=== PATIENT | female | born 1970 | race Caucasian/White ===

== ENCOUNTER → 2016-05-04 | Outpatient (CLI) | payer BC | LOC: BHSO 10:40 | DX: F31.81 Bipolar II disorder (principal) | CPT/HCPCS: 90791-AI ==

== ENCOUNTER → 2016-05-29 | Outpatient (CLI) | payer BC | LOC: BHSO 11:07 | DX: F31.81 Bipolar II disorder (principal) ==

== ENCOUNTER → 2016-10-13 | Outpatient (CLI) | payer BC | LOC: BHSO 11:12 | DX: F31.81 Bipolar II disorder (principal) ==

== ENCOUNTER → 2017-04-27 | Outpatient (CLI) | payer BC | LOC: BHSO 08:36 | DX: F31.81 Bipolar II disorder (principal) | CPT/HCPCS: G0463 ==

== ENCOUNTER → 2017-06-18 | Outpatient (CLI) | payer BC | LOC: BHSO 11:22 | DX: F31.81 Bipolar II disorder (principal) | CPT/HCPCS: G0463 ==

== ENCOUNTER → 2017-10-02 | Outpatient (CLI) | payer BC | LOC: BHSO 08:33 | DX: F31.81 Bipolar II disorder (principal) | CPT/HCPCS: G0463 ==

== ENCOUNTER → 2017-10-30 | Outpatient (CLI) | payer BC | LOC: BHSO 08:41 | DX: F31.81 Bipolar II disorder (principal) | CPT/HCPCS: G0463 ==

== ENCOUNTER → 2019-11-05 | Outpatient (CLI) | payer BC ==
[~2019-11-05] VITALS: Ht 163.8 cm; Wt 105.9 kg
[~2019-11-05] MED LIST: AMLODIPINE BESYLATE PO; COLESTID 1GM1 G PO; KLONOPIN 1MG1 MG PO; LAMICTAL XR25 MG PO
[2019-11-05 10:36] VITALS: BP 146/84; PULSE 88
--- NOTE | 2019-11-05 12:53 | NUR ---
PT ANSWERED YES TO SUICIDE RISK QUESTION #1 (iN THE PAST MONTH, HAVE YOU WISHED YOU WERE OR WISHED YOU COULD GO TO SLEEP AND NOT WAKE UP?) DENIED THOUGHTS OF KILLING HERSELF IN THE PAST MONTH. OVER THE PAST 3 MONTHS SHE STATED THAT SHE HAD PLANNED TO EAT HERSELF TO AND NOT PAY ATTENTION TO HER DIET. NO IMMEDIATE SUICIDAL THOUGHTS OR PLANS. RELATES THAT STARTING OUR PROGRAM HAS GIVEN HER HOPE. PLANS TO HAVE BARIATRIC SURGERY FOR HEALTH ISSUES. WAS SEEN BY DR. MOSES AT [place], [place] ON 10/22/2019 AND WAS STARTED ON NEW MEDS. HAS A FU APPT SCHEDULED FOR 11/19/2019, 2:30pm WITH DR MOSES. [facility] NOTIFIED AND THEY WILL CALL THE PATIENT IF ANY CANCELLATIONS FOR DR MOSES OCCUR PRIOR TO HER 11/19/2019 APPT. PT HAS SEEN DR. STEEN IN THE PAST. RELATES THAT HER SON HAS BEEN IN [facility] FOR A YEAR AND THAT HER CURRENT HEALTH ISSUES INCLUDE: LIVER ISSUES/HERRMANN, SOME PAIN, CHRONIC LOOSE STOOLS, NEWLY DX DIABETES TYPE 2, HYPERTENSION AND HIGH CHOLESTEROL/TRIGLYCERIDEMIA. HAS BEEN STRUGGLING TO COPE WITH THESE ISSUES. IS NOT CURRENTLY SEEING A COUNSELOR, BUT WILL BE SEEN BY [facility] FOR [facility]. ENCOURAGED HER TO SEE A COUNSELOR AND DECIDE IF SHE WOULD LIKE TO SEE [facility] ON AN ONGOING BASIS FOR DEPRESSED MOOD AND ANXIETY. SEEN BY [facility] AND PLAN IS TO FU WITH DR MOSES OR SOONER. ALSO TO SEE [facility]. PT CONT. TO DENY SUICIDAL THOUGHTS OR PLANS. STATES THAT SHE WOULD BE SAFE.
== END ==
LOC: LIGHT 07:51
DX: E66.01 Morbid (severe) obesity due to excess calories (principal); Z68.39 Body mass index [BMI] 39.0-39.9, adult; E11.9 Type 2 diabetes mellitus without complications; I10 Essential (primary) hypertension
CPT/HCPCS: G0463

== ENCOUNTER → 2019-11-07 | Outpatient (CLI) | payer BC | LOC: COL.RAD | DX: K76.0 Fatty (change of) liver, not elsewhere classified (principal); R16.0 Hepatomegaly, not elsewhere classified ==

== ENCOUNTER → 2019-11-18 | Outpatient (CLI) | payer BC | LOC: LIGHT ==

== ENCOUNTER → 2019-12-02 | Outpatient (CLI) | payer BC ==
[~2019-12-02] VITALS: Ht 163.8 cm; Wt 104.8 kg
[~2019-12-02] MED LIST changes: +GLUCOPHAGE500 MG/TAB PO; +LAMICTAL XR100 MG PO; -LAMICTAL XR25 MG PO; +LIPITOR20 MG PO
[2019-12-02 14:41] VITALS: BP 134/60; PULSE 76
== END ==
LOC: LIGHT 14:30
DX: E66.8 Other obesity (principal); Z68.39 Body mass index [BMI] 39.0-39.9, adult; E11.9 Type 2 diabetes mellitus without complications; I10 Essential (primary) hypertension
CPT/HCPCS: G0463

== ENCOUNTER → 2020-01-05 | Outpatient (CLI) | payer BC ==
[~2020-01-05] VITALS: Ht 163.8 cm; Wt 102.3 kg
[2020-01-05 15:06] VITALS: BP 130/76; PULSE 80
== END ==
LOC: LIGHT 14:57
DX: E66.01 Morbid (severe) obesity due to excess calories (principal); Z68.38 Body mass index [BMI] 38.0-38.9, adult; E11.9 Type 2 diabetes mellitus without complications; Z79.84 Long term (current) use of oral hypoglycemic drugs; I10 Essential (primary) hypertension
CPT/HCPCS: G0463

== ENCOUNTER → 2020-02-25 | Day surgery (SDC) | payer BC ==
[~2020-02-25] VITALS: Ht 162.6 cm; Wt 101.2 kg
[~2020-02-25] MED LIST changes: -AMLODIPINE BESYLATE PO; +NORVASC 5MG5 MG/TAB PO
[2020-02-25 06:38] VITALS: BP 136/90; PULSE 84; TEMP 99
[2020-02-25 07:55] VITALS: BP 128/88; PULSE 88
--- NOTE | 2020-02-25 07:55 | NUR ---
Patient returns to bay [address] per cart after having EGD and transfers from cart to recliner. Alert and oriented. IV fluids infusing and denies nausea or difficulty swallowing. Given Sprite to drink. Call light in reach.
--- NOTE | 2020-02-25 08:05 | NUR ---
Dr. Pierre here and talks with the patient. All questions answered.
[2020-02-25 08:10] VITALS: BP 129/89; PULSE 83
--- NOTE | 2020-02-25 08:10 | NUR ---
Eating applesauce and drinking water. States she is ready to go home.
--- NOTE | 2020-02-25 08:24 | NUR ---
IV fluids discontinued and site is free of redness. Dismissal instructions given and voices understanding of these. Dressed and dismissed to home driven by spouse and taken to the front door per wheelchair by this RN and assisted into vehicle by this RN.
[2020-02-25 08:42] VITALS: BP 136/90; PULSE 84; TEMP 99.2
== END ==
LOC: SDCO 06:29
DX: K29.30 Chronic superficial gastritis without bleeding (principal); K44.9 Diaphragmatic hernia without obstruction or gangrene; K21.9 Gastro-esophageal reflux disease without esophagitis; K76.0 Fatty (change of) liver, not elsewhere classified; K52.9 Noninfective gastroenteritis and colitis, unspecified; G89.29 Other chronic pain; M54.5 Low back pain; E66.01 Morbid (severe) obesity due to excess calories; Z68.38 Body mass index [BMI] 38.0-38.9, adult; E78.5 Hyperlipidemia, unspecified; E88.81 Metabolic syndrome and other insulin resistance; Z90.710 Acquired absence of both cervix and uterus; Z79.84 Long term (current) use of oral hypoglycemic drugs; Z86.718 Personal history of other venous thrombosis and embolism; I10 Essential (primary) hypertension; G43.909 Migraine, unspecified, not intractable, without status migrainosus; F32.9 Major depressive disorder, single episode, unspecified; F41.9 Anxiety disorder, unspecified; Z20.828 Contact with and (suspected) exposure to other viral communicable diseases
CPT/HCPCS: J2704; J7030

== ENCOUNTER 2020-03-22 11:44 | Inpatient (IN) | payer BC ==
[~2020-03-22] VITALS: Ht 166.4 cm; Wt 97.7 kg
[2020-04-07] VITALS (638 sets, daily range): BP systolic 126–139; BP diastolic 79–103; PULSE 79–93; TEMP 98–99.5; O2SAT 78–100
[2020-04-08] VITALS (615 sets, daily range): BP systolic 135–157; BP diastolic 75–92; PULSE 69–86; TEMP 98.2–98.8; O2SAT 89–100
[2020-04-08 09:00] LABS: BASO % 0.2 % (0.0-2.0); EOS % 0.1 % (0-4.0); GRAN # 10.3 (1.4-6.5); HEMATOCRIT 45.5 % (37.0-47.0); HEMOGLOBIN 14.9 g/dl (12.5-16.0); LYMPH # 2.9 (1.2-3.4); MEAN CELL VOLUME 88 fl (80.0-100.0); MEAN CORPUSCULAR HEMOGLOBIN 29 pg (27.0-31.0); MEAN CORPUSCULAR HGB CONC 33 g/dl (33.0-37.0); MEAN PLATELET VOLUME 8.9 fl (7.4-10.4); MONO # 1.1 (0.1-0.6); MONO % 7.4 % (1.7-9.3); PLATELET COUNT 331 K/mm3 (130-400); RED BLOOD COUNT 5.16 M/mm3 (4.10-5.30); REDCELL DISTRIBUTION WIDTH-CV 13.4 % (11.5-14.5)
[2020-04-08 09:10] LABS: ALBUMIN 4.9 gm/dL (3.5-5.0); BILIRUBIN,TOTAL 0.6 mg/dL (0.0-1.0); CALCIUM 9.4 mg/dL (8.4-10.2); CREATININE, serum 0.6 (0.52-1.25); POTASSIUM 4.2 mmol/L (3.4-5.0); TOTAL PROTEIN 8.1 gm/dL (6.4-8.2)
[2020-04-09] VITALS (7 sets, daily range): BP systolic 118–143; BP diastolic 71–97; PULSE 66–82; TEMP 97.8–98.8
[2020-04-09 08:44] LABS: BASO # 0.1 (0.0-0.2); BASO % 0.6 % (0.0-2.0); EOS # 0.2 (0.0-0.7); EOS % 1.8 % (0-4.0); GRAN % 62.5 % (42.2-75.2); HEMATOCRIT 43.2 % (37.0-47.0); HEMOGLOBIN 13.9 g/dl (12.5-16.0); LYMPH # 2.7 (1.2-3.4); LYMPH % 28.5 % (20.0-51.0); MEAN CELL VOLUME 90 fl (80.0-100.0); MEAN CORPUSCULAR HEMOGLOBIN 29 pg (27.0-31.0); MEAN CORPUSCULAR HGB CONC 32 g/dl (33.0-37.0); MONO # 0.6 (0.1-0.6); MONO % 6.4 % (1.7-9.3); PLATELET COUNT 283 K/mm3 (130-400); RED BLOOD COUNT 4.79 M/mm3 (4.10-5.30); REDCELL DISTRIBUTION WIDTH-CV 13.9 % (11.5-14.5)
[2020-04-09 08:54] LABS: ALBUMIN 4.3 gm/dL (3.5-5.0); BILIRUBIN,TOTAL 0.7 mg/dL (0.0-1.0); CALCIUM 8.9 mg/dL (8.4-10.2); CREATININE, serum 0.63 (0.52-1.25); TOTAL PROTEIN 7.3 gm/dL (6.4-8.2)
[2020-04-10 03:39] VITALS: BP 121/75; PULSE 78; TEMP 98
[2020-04-10 07:51] LABS: BASO # 0.1 (0.0-0.2); BASO % 0.5 % (0.0-2.0); EOS # 0.2 (0.0-0.7); EOS % 2.5 % (0-4.0); GRAN # 5.6 (1.4-6.5); GRAN % 59.4 % (42.2-75.2); HEMATOCRIT 41.2 % (37.0-47.0); HEMOGLOBIN 13.5 g/dl (12.5-16.0); LYMPH # 2.9 (1.2-3.4); LYMPH % 30.9 % (20.0-51.0); MEAN CELL VOLUME 89 fl (80.0-100.0); MEAN CORPUSCULAR HEMOGLOBIN 29 pg (27.0-31.0); MEAN CORPUSCULAR HGB CONC 33 g/dl (33.0-37.0); MEAN PLATELET VOLUME 8.8 fl (7.4-10.4); MONO # 0.6 (0.1-0.6); MONO % 6.5 % (1.7-9.3); PLATELET COUNT 282 K/mm3 (130-400); RED BLOOD COUNT 4.63 M/mm3 (4.10-5.30); REDCELL DISTRIBUTION WIDTH-CV 13.9 % (11.5-14.5)
[2020-04-10 08:10] LABS: ALBUMIN 4.1 gm/dL (3.5-5.0); CALCIUM 8.9 mg/dL (8.4-10.2); CREATININE, serum 0.68 (0.52-1.25)
[2020-04-10 08:15] VITALS: BP 111/74; PULSE 81; TEMP 98.6
[2020-04-10] MEDS ORDERED: NORCOELIX PO (08:42)
[2020-04-10] MEDS ORDERED: ZOFRAN 4MG T4 MG/TAB PO (08:43)
[2020-04-10] MEDS ORDERED: NEXIUM 20MG20 MG PO (08:53)
== END 2020-04-10 10:05 | disposition home or self-care (01) | DRG 621 ==
LOC: INPTSU 04-07 05:22 → SURG 04-07 07:30 → ICU 04-07 11:48 → SURG 04-08 11:06
PROVIDERS: ADMIT Surgery
PROC: 0D164ZA Bypass Stomach to Jejunum, Percutaneous Endoscopic Approach (ICD-10-PCS; principal; 2020-04-07 07:30)
DX: E66.01 Morbid (severe) obesity due to excess calories (principal); K21.9 Gastro-esophageal reflux disease without esophagitis; G89.29 Other chronic pain; M54.9 Dorsalgia, unspecified; I10 Essential (primary) hypertension; E11.9 Type 2 diabetes mellitus without complications; K52.9 Noninfective gastroenteritis and colitis, unspecified; E78.5 Hyperlipidemia, unspecified; K76.0 Fatty (change of) liver, not elsewhere classified; K44.9 Diaphragmatic hernia without obstruction or gangrene; Z90.710 Acquired absence of both cervix and uterus; Z79.84 Long term (current) use of oral hypoglycemic drugs; Z98.51 Tubal ligation status
CPT/HCPCS: A4314; C9113; J0330; J1100; J1170; J1650; J1956; J2250; J2405; J2550; J2704; J3010; J3480; J7030